=== PATIENT | female | born 1965 | race Caucasian/White ===

== ENCOUNTER 2023-03-30 19:05 | Inpatient (IN) | payer OTHER ==
[~2023-03-30] VITALS: Ht 167.6 cm; Wt 68.9 kg
[~2023-03-30 19:05] MED LIST: CETI-90 PO; LORA2TAB PO; OLAN5TAB3 PO
[2023-03-30] MEDS ORDERED: levETIRAcetam IV 500 MG in IV DEXTROSE 5% 100 ML IV ONE (19:15)
[2023-03-30] MEDS ORDERED: LORAZEPAM 2 MG/1 ML VIAL IV ONE (19:15)
[2023-03-30] MEDS ORDERED: LORAZEPAM 2 MG/1 ML VIAL ONE (19:16)
[2023-03-30] MEDS ORDERED: IV NORMAL SALINE 1000 ML BAG IV ONE (19:30)
[2023-03-30] MEDS ORDERED: levETIRAcetam 500 MG/5 ML VIAL IV ONE (19:35)
--- NOTE | 2023-03-30 19:38 | NUR ---
Patient was taken down to CT scan.
[2023-03-30 19:41] LABS: HEMATOCRIT 34.7 % (31.2-41.9); MEAN CORPUSCULAR HEMOGLOBIN 32.3 uug (24.7-32.8); MEAN CORPUSCULAR VOLUME 92.9 fL (75.5-95.3); PLATELET COUNT (AUTO) 154 K/uL (179-408)
[2023-03-30] MEDS ORDERED: OLAN2.5T3 PO (19:54)
[2023-03-30] MEDS ORDERED: ATOR20TA PO (19:54)
[2023-03-30] MEDS ORDERED: CHOL10005 PO (19:54)
[2023-03-30] MEDS ORDERED: METF-440 PO (19:54)
[2023-03-30] MEDS ORDERED: OLAN10TA73 PO (19:54)
[2023-03-30] MEDS ORDERED: LITH300C2 PO (19:54)
--- NOTE | 2023-03-30 19:54 | NUR ---
Received call from patient's brother, Prakash Billings, , stated patient takes Olanzapine 10mg in PM and 2.5mg in AM, lowered from 20mg.
[2023-03-30 20:06] LABS: ALANINE AMINOTRANSFERASE 34 U/L (14-59); ALKALINE PHOSPHATASE 97 U/L (50-136); ASPARTATE AMINOTRANSFERASE 28 U/L (15-37); BILIRUBIN,DIRECT 0.2 mg/dL (0.0-0.2); BILIRUBIN,TOTAL 0.5 mg/dL (0.2-1.0); CARBON DIOXIDE 20 mmol/L (21-32); CHLORIDE 86 mmol/L (98-107); CREATININE 0.8 mg/dL (0.6-1.3); GLUCOSE 102 mg/dL (74-106); POTASSIUM 3.8 mmol/L (3.5-5.1); TOTAL PROTEIN, SERUM 7.5 g/dL (6.4-8.2); UREA NITROGEN, BLOOD 17 mg/dL (7-18)
[2023-03-30 20:11] LABS: *URINE HCG, QUAL NEGATIVE (NEGATIVE)
[2023-03-30] MEDS ORDERED: IV NS 1000 ML 1,000 ML IV ONE (20:15)
[2023-03-30 20:27] LABS: *AMPHETAMINE, URINE NEGATIVE (NEGATIVE); *CANNABINOID, URINE NEGATIVE (NEGATIVE); *COCCAINE, URINE NEGATIVE (NEGATIVE); *PHENCYCLIDINE SCREEN,URINE NEGATIVE (NEGATIVE)
--- NOTE | 2023-03-30 20:34 | NUR ---
Called [facility] for panel call. Dr. Bird contracting manager.
--- NOTE | 2023-03-30 20:44 | NUR ---
Recieved room # 307 for patient from third floor.
--- NOTE | 2023-03-30 20:50 | NUR ---
Family at bedside. Patinet is awake and resting in bed. Rise and fall of chest noted.
[2023-03-30] MEDS ORDERED: OLANZAPINE 5 MG TABLET ONE (21:12)
[2023-03-30] MEDS ORDERED: OLANZAPINE 5 MG TABLET PO ONE (21:15)
--- NOTE | 2023-03-30 21:45 | NUR ---
Called third floor and gave report to Stephanie FINK.
--- NOTE | 2023-03-30 22:03 | NUR ---
Transferred patient upstairs via gurney. ALEKS Brown made aware of patient's arrival.
[2023-03-30 22:37] VITALS: BP 111/57
[2023-03-30] MEDS ORDERED: LORAZEPAM 2 MG/1 ML VIAL IV PRN (22:45)
[2023-03-30] MEDS ORDERED: OLANZAPINE 10 MG VIAL IM PRN (22:45)
[2023-03-30] MEDS ORDERED: ACETAMINOPHEN 325 MG TABLET PO PRN (22:45)
[2023-03-30] MEDS: IV NS 1000 ML 1,000 ML IV PRN (23:13)
[2023-03-31 04:11] VITALS: BP 112/59
--- NOTE | 2023-03-31 05:14 | NUR ---
Received pt via [place] assisted by RN. Admitted 57 yr old female with dx of hyponatremia under Dr. Villalobos. AOx2. Forgetful. Speech is unclear at times. Calm and cooperative. Sinus Juan with HR of 50s. Skin is intact. IV site on L FA 20g intact and patent IVF at 80cc/hr. No seizure episode noted. Seizure precautions initiated. All needs attended to and met. Monitored continuously.
[2023-03-31] MEDS: PANTOPRAZOLE SODIUM 40 MG TABLET.DR PO SCH (06:05)
[2023-03-31 07:18] LABS: HEMATOCRIT 35.8 % (31.2-41.9); MEAN CORPUSCULAR HEMOGLOBIN 31.9 uug (24.7-32.8); MEAN CORPUSCULAR VOLUME 93.7 fL (75.5-95.3); PLATELET COUNT (AUTO) 126 K/uL (179-408)
[2023-03-31 07:26] LABS: THYROID STIMULATING HORMONE 3.932 mIU/mL (0.358-3.740)
[2023-03-31 07:59] LABS: BILIRUBIN,TOTAL 0.5 mg/dL (0.2-1.0); CREATININE 0.8 mg/dL (0.6-1.3); POTASSIUM 4.2 mmol/L (3.5-5.1); TOTAL PROTEIN, SERUM 6.6 g/dL (6.4-8.2)
--- NOTE | 2023-03-31 08:00 | NUR ---
Pt awake alert and oriented x 3 . Ambulatory to bathroom. with SBA/Min A. pt was incontinent of bladder. PT skin intact. Call light is within reach. Side rails padded. Seizure precaution implemented. Observed pt and noted No s/s of swallowing difficulties or any s/s of aspiration. Noted pt is forgetful. Left ac iv #20 intact. IVF infusing as ordered.
[2023-03-31] MEDS: IV NS 1000 ML 1,000 ML IV PRN (10:27)
[2023-03-31 12:03] LABS: EOSINOPHILS % (MANUAL) 4 % (0-8); LYMPHOCYTES % (MANUAL) 19 % (20-40); MONOCYTES % (MANUAL) 20 % (2-10); NEUTROPHILS % (MANUAL) 57 % (42-75)
[2023-03-31 12:34] VITALS: BP 101/59
[2023-03-31] MEDS ORDERED: DEXTROSE 50% 50 ML DISP.SYRIN IV PRN (13:30)
[2023-03-31 16:04] VITALS: BP 105/52
[2023-03-31] MEDS: levETIRAcetam 500 MG/5 ML LIQUID UDC PO SCH ×2 (16:56→20:05)
[2023-03-31] MEDS: BLOOD SUGAR DIAGNOSTIC 1 EACH STRIP VI SCH ×2 (17:10→20:28)
--- NOTE | 2023-03-31 17:30 | NUR ---
Clarified with DONELL SMITH re continuation of keppra per his notes and that theres no KEppra ordered for today. New order received to give keppra as ordered. Pt is iin no acute distress.
[2023-03-31] MEDS ORDERED: UPAD15TA PO (17:41)
[2023-03-31 20:00] VITALS: BP 96/56
--- NOTE | 2023-03-31 20:06 | NUR ---
RECEIVED PATIENT IN BED. A/O X3. DENIES ANY PAIN OR DISCOMFORT. NO RESP. DISTRESS NOTED. ON SEIZURE PRECAUTIONS. 2100 DOSE OF KEPPRA NOT GIVEN MEDICATION WAS JUST GIVEN A FEW HOURS AGO AND MEDICATION IS EVERY 12 HOURS. RUG SETTER AXMINSTER NOTIFIED, WILL RESUME REGULAR SCHEDULE IN AM. CALL LIGHT IN REACH. ALL NEEDS ATTENDED. WILL CONTINUE TO MONITOR AND ASSESS.
[2023-03-31] MEDS: INSULIN REGULAR, HUMAN 300 UNIT/3 ML VIAL SQ PRN (20:29)
[2023-04-01] MEDS: PANTOPRAZOLE SODIUM 40 MG TABLET.DR PO SCH (06:13)
[2023-04-01] MEDS: IV NS 1000 ML 1,000 ML IV PRN (06:13)
[2023-04-01 06:14] VITALS: BP 105/57
[2023-04-01 06:37] LABS: HEMATOCRIT 36.6 % (31.2-41.9); MEAN CORPUSCULAR HEMOGLOBIN 31.9 uug (24.7-32.8); MEAN CORPUSCULAR VOLUME 94.6 fL (75.5-95.3); PLATELET COUNT (AUTO) 131 K/uL (179-408)
[2023-04-01 06:41] LABS: CREATININE 0.8 mg/dL (0.6-1.3); PHOSPHOROUS 4.4 mg/dL (2.5-4.9)
[2023-04-01] MEDS: BLOOD SUGAR DIAGNOSTIC 1 EACH STRIP VI SCH (06:41)
[2023-04-01] MEDS: INSULIN REGULAR, HUMAN 300 UNIT/3 ML VIAL SQ PRN (10:14)
--- NOTE | 2023-04-01 11:00 | NUR ---
Pt is in no acute distress. No seizure episode noted. Discharge instructions given to pt and Brother (primary cardiac care nurse) IV and ID taken off. Explained to follow up with primary doctor within 1 week. Discussed home med List and when meds were last taken. Educated on purpose and side effects of medications pt will be taking at home.
== END 2023-04-01 11:10 | disposition home or self-care (01) | DRG 426 ==
LOC: ER 19:05 → TELE3 21:45 → MEDSURG3 03-31 11:05
PROVIDERS: ADMIT Internal Medicine; ATTEND Nurse Practitioner Acute Care
DX: E87.1 Hypo-osmolality and hyponatremia (principal); F20.0 Paranoid schizophrenia; G40.509 Epileptic seizures related to external causes, not intractable, without status epilepticus; R63.1 Polydipsia; E78.5 Hyperlipidemia, unspecified; E11.9 Type 2 diabetes mellitus without complications; Z88.0 Allergy status to penicillin; Z79.84 Long term (current) use of oral hypoglycemic drugs; Z88.8 Allergy status to other drugs, medicaments and biological substances; Z79.899 Other long term (current) drug therapy
CPT/HCPCS: 36415; 70030-TC; 70450; 83735; 84100; 84443; 84480; 84703; 85025; 93005; C1758; G0378; G0480; J1815; J1953; J2060; J7040